=== PATIENT | male | born 1980 | race Caucasian/White ===

== ENCOUNTER → 2018-04-02 | Outpatient (CLI) | payer BC ==
[~2018-04-02] MED LIST: DIATR MEGLU/DIATRIZOATE SODIUM 30 ML BOTTLE ONE
== END | disposition home or self-care (01) ==
LOC: RAH 08:52
PROVIDERS: ATTEND Surgery
DX: K50.90 Crohn's disease, unspecified, without complications (principal); Z90.49 Acquired absence of other specified parts of digestive tract
CPT/HCPCS: 74250; Q9963